=== PATIENT | female | born 2000 | race Caucasian/White ===

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

== ENCOUNTER 2021-08-14 13:27 | Emergency (ER) | payer OTHER, SELFPAY ==
[2021-08-14 13:28] VITALS: BP 111/75; PULSE 125; RESP 18; TEMP 37.3; O2SAT 96; BMI 22.1
[2021-08-14 14:06] LABS: Absolute Neutrophil Count 10.7 X10^3/uL (2.0-7.7); Basophil# 0.02 X10^3/uL; Basophil% 0.2 % (0-1); Eosinophil# 0.01 X10^3/uL; Eosinophils% 0.1 % (0-5); Hematocrit 45.8 % (37-47); Hemoglobin 16.1 g/dL (12.0-15.0); Lymphocyte % 2.6 % (19-41); Mean Corp Hgb Conc 35.2 g/dL (32-36); Mean Corpuscular Hgb 31.4 pg (27.0-32.0); Mean Corpuscular Volume 89.5 fL (81-99); Mean Platelet Vol. 10.5 fl (6.2-12.0); Monocyte% 2.6 % (0-10); NRBC Flagged by Analyzer 0 % (0-5); Neutrophil # 10.65 X10^3/uL (2.7-7.7); Neutrophil % 94.1 % (47-70); POSITIVE DIFFERENTIAL YES; Platelet Count 179 K/mm3 (150-450); RBC Distribution Width CV 12.6 % (11.6-14.6); RBC Distribution Width SD 41.3 fl (35.1-43.9); Red Blood Count 5.12 M/mm3 (4.2-5.4); White Blood Count 11.3 K/mm3 (4.4-11.0)
[2021-08-14 14:10] LABS: Differential Indicated SCAN CRITERIA MET
[2021-08-14 14:18] LABS: Anion Gap 4 (5-15); BUN 14 mg/dL (7-18); BUN/Creat Ratio 16.9 RATIO (10-20); Calcium,Total 9.3 mg/dL (8.5-10.1); Chloride 108 mmol/L (98-107); Creatinine, Serum 0.83 mg/dL (0.55-1.02); EST Glomerular Filtration Rate 93 mL/min (>60); Est Glom Filt Rate - Afr Amer 113 mL/min (>60); Estimated Creatinine Clearance 112.99 ml/min; Glucose 108 mg/dL (74-106); Sodium Level 138 mmol/L (136-145)
[2021-08-14 14:34] LABS: Internal QC Validated? YES +Cl - CLEAR BKGD; Pregnancy, Serum, hCG Quali. NEGATIVE Negative
[2021-08-14 14:36] LABS: Bacteria 0 SEEN /hpf (None Seen); Mucous, Urine 0 SEEN /hpf (<or=2+); Red Blood Cells-Urine 0 SEEN /hpf (0-5); Squamous Epithelial Cells - UA 0 SEEN /hpf (5-10); White Blood Cells 0 SEEN /hpf (0-5)
[2021-08-14 14:42] LABS: Color, Urine Yellow (Yellow); Glucose, Dipstick Normal (Normal); Leukocyte Esterase-Dipstick Negative /ul (Negative); Nitrite-Dipstick Negative (Negative); Occult Blood-Urine 10 /ul (Negative); Protein-Dipstick Negative (Negative); Urine Bilirubin Dipstick Negative (Negative); Urine Clarity Clear (Clear); Urine Urobilinogen Normal (Normal)
[2021-08-14 14:48] LABS: Ketone-Dipstick 150 mg/dl (Negative)
[2021-08-14 14:51] LABS: Glucose, Dipstick Normal (Normal); Leukocyte Esterase-Dipstick Negative /ul (Negative); Nitrite-Dipstick Negative (Negative); Occult Blood-Urine 25 /ul (Negative); Protein-Dipstick Negative (Negative); Specific Gravity, Urine 1.025 (1.002-1.030); Urine Bilirubin Dipstick Negative (Negative); Urine Urobilinogen Normal (Normal)
--- NOTE | 2021-08-14 14:53 | CT_ITS ---
STUDY: CT ABDOMEN AND PELVIS WITH CONTRAST REASON FOR EXAM: Female, 21 years old. Mid and lower abdominal pain with nausea RADIATION DOSAGE (If Supplied By Facility): CTDIvol = ( 7.28 ) mGy, DLP = ( 282.90 ) mGycm TECHNIQUE: Transaxial images were obtained from the dome of the diaphragm to the symphysis pubis without oral contrast. IV 100mL Isovue-370 was administered. Sagittal and coronal images were reconstructed. Individualized dose optimization techniques were used for this CT. COMPARISON: None. FINDINGS: The visualized lung bases are unremarkable. The visualized portions of the heart are within normal limits. Normal liver. Normal gallbladder and extrahepatic biliary system. Normal spleen. Normal pancreas. Normal bilateral adrenal glands. Normal right kidney. Normal left kidney. Normal visualized stomach. Fluid-filled small bowel and proximal colon but no large or small bowel wall thickening. Normal colon. The appendix is visualized and appears normal. Normal abdominal aorta. Normal inferior vena cava. Normal retroperitoneum. Normal urinary bladder. There is a vaginal tampon. Normal abdominal wall. Normal osseous structures. CT/Abdomen/Pelvis W IV Cont ONLY IMPRESSION: 1. No bowel obstruction or bowel wall thickening. 2. Fluid-filled small and proximal large bowel nonspecific but can be associated with gastroenteritis. No localized inflammatory process. Electronically Signed: Ulises Small MD ([place]) at 15:44 EDT ,
--- NOTE | 2021-08-14 14:54 | ED.VIS.GI ---
HPI HPI - GI History of Present Illness Chief Complaint: Abd Pain Narrative Narrative: 21-year-old female presenting with epigastric pain. Patient states that started this morning when she woke up. She states the Nexium for the last night for dinner. She admits to having some diarrhea. She not had fever. She expresses she has nausea without vomiting. She has not eaten today. She states that last week she has symptoms of a UTI but she did not get treated and this resolved. She denies dysuria or hematuria today. She states she did have some hematuria last week. Today she is on her menstrual cycle. She was not on it then. Patient has a history of kidney stones. [facility] Medical History (Updated 09/24/20 @ 09:57 by Lorenzo YOON, PA) Arthritis Back pain Shoulder pain Urinary tract infection with hematuria Home Medications famotidine [Pepcid] 20 mg PO BID #10 tab 08/14/21 [Rx Last Taken Unknown] ondansetron 4 mg PO Q8H PRN #14 tab 08/14/21 [Rx Last Taken Unknown] Allergy/AdvReac Type Severity Reaction Status Date / Time amoxicillin Allergy Hives Verified 08/14/21 13:29 ciprofloxacin Allergy Unknown Verified 08/14/21 13:29 Family History Other Arthritis Cancer Myocardial infarction Surgical History History of nasal cauterization Social History (Updated 08/20/20 @ 11:[address] Mel Preston, DO) Smoking Status: Never smoker alcohol intake: never ROS ROS ED Constitutional Constitutional ED: Denies chills, fever(s) or sweats ENT ENT ED: Denies rhinorrhea or sore throat Cardiovascular Cardiovascular: Denies chest pain or palpitations Respiratory/Chest Respiratory/Chest: Denies cough or dyspnea Gastrointestinal Gastrointestinal: Reports abdominal pain, diarrhea and nausea; Denies vomiting Genitourinary Genitourinary ED: Denies dysuria or hematuria Musculoskeletal Musculoskeletal: Denies arthralgias or myalgias Integumentary Denies rash Neurologic Neurologic: Denies headache(s) or paresthesias EXAM Physical Exam Const Vital Signs: 08/14/21 13:28 Temperature 99.2 F H Temperature Source Temporal Pulse Rate 125 H Respiratory Rate 18 Blood Pressure 111/75 Blood Pressure Mean 87 Pulse Ox 96 Oxygen Delivery Method Room Air Positive well nourished General Appearance ED: NAD; Negative for pallor HEENT Reports moist mucous membranes normocephalic and atraumatic Eyes PERRL and EOMs intact bilaterally Resp normal respiratory effort and clear to auscultation bilaterally Cardio regular rate Rate: tachycardic GI Palpation: soft and tender epigastric and LLQ Neuro Sensorium / Orientation: alert, oriented to person, oriented to place and oriented to time Psych mental status grossly normal Skin General Skin Exam: Negative for jaundice or pallor Lesions: no lesions Rashes: no rashes MDM MDM MDM Narrative Medical decision making narrative: Patient arrives with abdominal pain. Appears to be epigastric and left upper quadrant/left lower quadrant. She has no CVA tenderness although I obtained blood work and her CBC shows a leukocytosis of 11.3. Hemoglobin hematocrit are stable. Renal function electrolytes are normal. LFTs and lipase are normal. Patient was given morphine, Zofran, a liter of IV fluids and feels improved. I obtained a CT of abdomen pelvis which shows findings consistent with a gastroenteritis. Patient counseled on findings. She will be given Zofran and Pepcid for home. Patient to return precautions. Impression: 1. Gastroenteritis Lab Data Attestation: I reviewed the patient's lab results. Labs: Laboratory Results - last 24 hr 08/14/21 08/14/21 08/14/21 14:00 14:00 14:00 WBC 11.3 H RBC 5.12 Hgb 16.1 H Hct 45.8 MCV 89.5 MCH 31.4 MCHC 35.2 RDW Std Deviation 41.3 RDW Coeff of Wojciech 12.6 Plt Count 179 MPV 10.5 Immature Gran % (Auto) 0.400 Neut % (Auto) 94.1 H Lymph % (Auto) 2.6 L Gonzales % (Auto) 2.6 Eos % (Auto) 0.1 Baso % (Auto) 0.2 Absolute Neuts (auto) 10.7 H Absolute Lymphs (auto) 0.30 L Nucleated RBC % 0 Platelet Estimate ADEQUATE RBC Morphology NORM C+C Sodium 138 Potassium 4.0 Chloride 108 H Carbon Dioxide 26.0 Anion Gap 4 L BUN 14 Creatinine 0.83 Estim Creat Clear Calc 112.99 Est GFR (MDRD) Af Amer 113 Est GFR (MDRD) Non-Af 93 BUN/Creatinine Ratio 16.9 Glucose 108 H Calcium 9.3 Total Bilirubin Direct Bilirubin AST ALT Alkaline Phosphatase Total Protein Albumin Globulin Lipase Serum , Qual NEGATIVE Urine Color Urine Clarity Urine pH Ur Specific Weems Urine Protein Urine Glucose (UA) Urine Ketones Urine Occult Blood Urine Nitrite Urine Bilirubin Urine Urobilinogen Ur Leukocyte Esterase Urine RBC Urine WBC Ur Squamous Epith Cells Urine Bacteria Urine Mucus Urine Test 08/14/21 08/14/21 08/14/21 14:00 14:00 14:31 WBC RBC Hgb Hct MCV MCH MCHC RDW Std Deviation RDW Coeff of Wojciech Plt Count MPV Immature Gran % (Auto) Neut % (Auto) Lymph % (Auto) Gonzales % (Auto) Eos % (Auto) Baso % (Auto) Absolute Neuts (auto) Absolute Lymphs (auto) Nucleated RBC % Platelet Estimate RBC Morphology Sodium Potassium Chloride Carbon Dioxide Anion Gap BUN Creatinine Estim Creat Clear Calc Est GFR (MDRD) Af Amer Est GFR (MDRD) Non-Af BUN/Creatinine Ratio Glucose Calcium Total Bilirubin 1.00 Direct Bilirubin 0.28 AST 15 ALT 16 Alkaline Phosphatase 64 Total Protein 8.0 Albumin 4.3 Globulin 3.7 Lipase 116 Serum , Qual Urine Color Yellow Urine Clarity Clear Urine pH 5.0 Ur Specific Weems 1.025 Urine Protein Negative Urine Glucose (UA) Normal Urine Ketones 150 A* Urine Occult Blood 25 H Urine Nitrite Negative Urine Bilirubin Negative Urine Urobilinogen Normal Ur Leukocyte Esterase Negative Urine RBC 0 SEEN Urine WBC 0 SEEN Ur Squamous Epith Cells 0 SEEN Urine Bacteria 0 SEEN Urine Mucus 0 SEEN Urine Test Negative 08/14/21 14:31 WBC RBC Hgb Hct MCV MCH MCHC RDW Std Deviation RDW Coeff of Wojciech Plt Count MPV Immature Gran % (Auto) Neut % (Auto) Lymph % (Auto) Gonzales % (Auto) Eos % (Auto) Baso % (Auto) Absolute Neuts (auto) Absolute Lymphs (auto) Nucleated RBC % Platelet Estimate RBC Morphology Sodium Potassium Chloride Carbon Dioxide Anion Gap BUN Creatinine Estim Creat Clear Calc Est GFR (MDRD) Af Amer Est GFR (MDRD) Non-Af BUN/Creatinine Ratio Glucose Calcium Total Bilirubin Direct Bilirubin AST ALT Alkaline Phosphatase Total Protein Albumin Globulin Lipase Serum , Qual Urine Color Yellow Urine Clarity Clear Urine pH 5.0 Ur Specific Weems 1.020 Urine Protein Negative Urine Glucose (UA) Normal Urine Ketones 150 A* Urine Occult Blood 10 H Urine Nitrite Negative Urine Bilirubin Negative Urine Urobilinogen Normal Ur Leukocyte Esterase Negative Urine RBC 0 SEEN Urine WBC 0 SEEN Ur Squamous Epith Cells 0-5 SEEN Urine Bacteria RARE Urine Mucus 0 SEEN Urine Test Radiography Diagnostic Testing: Clinical Impression(s) from Imaging Studies Abdomen/Pelvis CT 08/14/21 14:53 IMPRESSION: 1. No bowel obstruction or bowel wall thickening. 2. Fluid-filled small and proximal large bowel nonspecific but can be associated with gastroenteritis. No localized inflammatory process. Electronically Signed: Ulises Small MD ([place]) at 15:44 EDT , Discharge Plan Triage Chief Complaint: Abd Pain ED Provider: Nicko Gill Dx/Rx/DC Orders Instructions: ED Gastroenteritis, Noninfectious Prescriptions: New ondansetron 4 mg tablet,disintegrating 4 mg PO Q8H PRN (Reason: nausea and vomiting) Qty: 14 RF: 0 famotidine [Pepcid] 20 mg tablet 20 mg PO BID Qty: 10 RF: 0 Primary Care Provider: Lesli Stone Referrals: NOT,DEFINED [NON-STAFF] - Disposition Disposition: Home, Self Care
[2021-08-14 14:56] LABS: Color, Urine Yellow (Yellow); Urine Clarity Clear (Clear)
[2021-08-14 14:57] LABS: Ketone-Dipstick 150 mg/dl (Negative)
[2021-08-14 14:58] LABS: Internal QC Validated? YES +Cl - CLEAR BKGD
[2021-08-14 14:59] LABS: Pregnancy, Urine Negative Negative
[2021-08-14] MEDS: 0.9% Normal Saline 1,000 ML 999 ML IV (15:03)
[2021-08-14] MEDS: Ondansetron 4 MG/2 ML Vial IV (15:04)
[2021-08-14] MEDS: Morphine 4 MG/ML Syringe IV (15:04)
[2021-08-14 15:08] LABS: Bacteria RARE /hpf (None Seen); Squamous Epithelial Cells - UA 0-5 SEEN /hpf (5-10)
[2021-08-14 15:14] LABS: Platelet Estimate ADEQUATE (ADEQ); Red Cell Morphology NORM C+C NORMAL (NORM C&C)
[2021-08-14 15:18] LABS: Lipase 116 U/L (73-393)
[2021-08-14 15:21] LABS: AST(SGOT) 15 U/L (15-37); Alanine Aminotransfer ALT/SGPT 16 U/L (13-56); Albumin, Serum 4.3 g/dL (3.2-5.0); Alkaline Phosphatase 64 U/L (45-117); Bilirubin, Direct 0.28 mg/dL (0.00-0.30); Globulin 3.7 g/dL (2.2-4.2)
== END 2021-08-14 16:15 | disposition home or self-care (01) ==
PROVIDERS: Emergency Provider Student in an Organized Health Care Education/Training Program; PCP Pediatrics; Visit Provider Student in an Organized Health Care Education/Training Program
DX: K52.9 Noninfective gastroenteritis and colitis, unspecified (principal); Z87.442 Personal history of urinary calculi; Z87.440 Personal history of urinary (tract) infections
CPT/HCPCS: 74177; 80048; 80076; 81001; 81025; 83690; 84703; 85025; 96361; 96374; 96375; 99283; J7030; Q9967; J2405

== ENCOUNTER → 2022-03-16 | Outpatient (CLI) | payer OTHER, SELFPAY ==
[2022-03-16 15:28] LABS: Red Blood Cells-Urine 0 SEEN /hpf (0-5)
[2022-03-16 15:33] LABS: Color, Urine Yellow (Yellow); Glucose, Dipstick Normal (Normal); Ketone-Dipstick 5 mg/dl (Negative); Leukocyte Esterase-Dipstick 25 /ul (Negative); Nitrite-Dipstick Negative (Negative); Occult Blood-Urine Negative /ul (Negative); Protein-Dipstick 15 mg/dl (Negative); Urine Bilirubin Dipstick Negative (Negative); Urine Clarity Clear (Clear); Urine Urobilinogen Normal (Normal)
[2022-03-16 15:42] LABS: Bacteria 3+ /hpf (None Seen); Mucous, Urine 3+ /hpf (<or=2+); Squamous Epithelial Cells - UA 5-10 SEEN /hpf (5-10); White Blood Cells 0-5 SEEN /hpf (0-5)
== END | disposition home or self-care (01) ==
PROVIDERS: PCP Pediatrics; Visit Provider Physician Assistant Surgical
DX: R30.0 Dysuria (principal)
CPT/HCPCS: 81001; 87086; 87088

== ENCOUNTER → 2022-12-07 | Outpatient (CLI) | payer OTHER, SELFPAY | END | disposition home or self-care (01) | LOC: LABSPEC 15:24 | PROVIDERS: PCP Pediatrics; Referring Provider Physician Assistant; Visit Provider Physician Assistant | DX: R30.0 Dysuria (principal) | CPT/HCPCS: 87086; 87088 ==